=== PATIENT | female | born 2000 | race Caucasian/White ===

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

== ENCOUNTER 2022-12-09 13:24 | Emergency (ER) | payer OTHER ==
[~2022-12-09] VITALS: Ht 172.7 cm; Wt 140.0 kg
[2022-12-09] MEDS ORDERED: DOXY-CAPS100 MG PO (14:11)
[2022-12-09 14:24] VITALS: BP 142/93
== END 2022-12-09 14:36 | disposition home or self-care (01) ==
LOC: ED 13:24
DX: L03.011 Cellulitis of right finger (principal)

== ENCOUNTER 2023-02-10 11:57 | Emergency (ER) | payer SELFPAY ==
[~2023-02-10] VITALS: Ht 172.7 cm; Wt 68.0 kg
[2023-02-10] VITALS (8 sets, daily range): BP systolic 112–138; BP diastolic 70–86
[~2023-02-10 11:57] MED LIST changes: +DOXY-CAPS100 MG PO
[2023-02-10 12:53] LABS: BASO% 0.1 % (0-3); HEMATOCRIT 43.8 % (37.0-47.0); HEMOGLOBIN 14.4 g/dl (12.0-16.0); IMMATURE GRANULOCYTES 0.3 % (0.0-5.0); LYMPH% 2.7 % (15-41); MEAN CELL VOLUME 91.3 fL CALC (80.0-100.0); MEAN CORPUSCULAR HGB CONC 32.9 g/dL CAL (32.0-36.0); MONO% 5.6 % (2-13); NEUT# 11.97 thou/uL (2.00-7.15); NEUT% 91.3 % (42-76); RED BLOOD COUNT 4.8 mill/uL (4.20-5.60); RED CELL DISTRI WIDTH 11.6 % (11.5-15.5)
[2023-02-10 12:53] LABS: URINE BILIRUBIN - DIPSTICK NEGATIVE (NEGATIVE); URINE BLOOD DIPSTICK MODERATE (NEGATIVE); URINE COLOR YELLOW; URINE GLUCOSE - DIPSTICK NEGATIVE (NEGATIVE); URINE KETONE NEGATIVE (NEGATIVE); URINE LEUK ESTERASE NEGATIVE (NEGATIVE); URINE PH 5.5 (4.5-8.0); URINE PROTEIN - DIPSTICK TRACE mg/dL (NEG-TRACE); URINE SPECIFIC GRAVITY >=1.030; URINE UROBILINOGEN - DIPSTICK 0.2 E.U./dL (0.2)
[2023-02-10 13:00] LABS: URINE EPITHELIAL CELLS FEW EPI/hpf (0-FEW); URINE NITRITE - DIPSTICK NEGATIVE (Negative); URINE RBC 25-50 RBC/hpf (0-5)
[2023-02-10 13:05] LABS: ALBUMIN 4.8 g/dL (3.2-5.0); ALKALINE PHOSPHATASE 86 u/l (38-126); ANION GAP 15 (6-22 (CALC)); BILIRUBIN, TOTAL 0.9 mg/dL (0.02-1.3); BUN 21 mg/dL (7-17); BUN/CREATININE RATIO 34 (12-20 (CALC)); CARBON DIOXIDE 22 mmol/l (22-30); CHLORIDE 106 mmol/l (95-108); CREATININE 0.6 mg/dL (0.5-1.0); GFR FOR AFR.AMER. > 60 ML/MIN (>=60 (CALC)); GFR OTHER RACES > 60 ML/MIN (>=60 (CALC)); POTASSIUM 4.1 mmol/l (3.5-5.1); SGOT/AST 27 u/l (14-36); SODIUM 139 mmol/l (137-146); TOTAL PROTEIN 7.9 g/dL (6.3-8.2)
[2023-02-10] MEDS ORDERED: ZOFRAN4 MG/TAB PO (13:43)
== END 2023-02-10 14:39 | disposition home or self-care (01) | DRG 392 ==
LOC: ED 11:57
PROVIDERS: Family Medicine
DX: R11.2 Nausea with vomiting, unspecified (principal)